=== PATIENT | female | born 1960 | race Caucasian/White ===

== ENCOUNTER 2020-04-19 23:00 | Emergency (ER) | payer OTHER ==
[2020-04-19] MEDS ORDERED: Cyclobenzaprine 10 MG Tab PO ONE (23:01)
[2020-04-19 23:27] VITALS: BP 154/94; PULSE 89
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
[2020-04-20] MEDS ORDERED: Take Home: Cyclobenzaprine 10 MG Tab, 4 Tab Pack PO ONE (00:41)
== END 2020-04-20 00:49 | disposition home or self-care (01) ==
LOC: CC.ED 23:00
DX: M62.838 Other muscle spasm (principal); V48.5XXA Car driver injured in noncollision transport accident in traffic accident, initial encounter
CPT/HCPCS: 36415; 70450; 71046; 72125; 72128; 80053; 81001; 82150; 83605; 85025; 96372; 99284-25; A9270-GY; J2360